=== PATIENT | female | born 1975 | race Caucasian/White ===

== ENCOUNTER 2018-06-12 10:48 | Emergency (ER) | payer OTHER ==
--- NOTE | 2018-06-12 11:23 | EDPHY ---
H & P Stated Complaint: Rib/shoulder pain Time Seen by Provider: 06/12/18 10:53 HPI/ROS: CHIEF COMPLAINT: Right-sided chest pain, pneumothorax HISTORY OF PRESENT ILLNESS: A 43-year-old female presents with right-sided chest pain. 2 days ago she was riding her horse (helmeted) when her horse bucked off. She landed directly onto her right shoulder. Onset moderate pain in the right shoulder and right chest. The pain increases with deep inspiration and with movement. She did not seek care directly after that incident as she felt okay and was able to ride her horse afterwards. However, after being in a hot tub, she became dizzy and had a syncopal episode. She sustained a nasal laceration, requiring suturing. She went to urgent care for the nasal laceration, told the provider about the fall and had a CXR. Chest x- ray was initially read as unremarkable. She was discharged home on meloxicam, which has controlled the pain. She received a follow-up phone call this morning , with a diagnosis of a right-sided pneumothorax and rib fractures of the 1st and 2nd right ribs. Told to f/u ED for further eval. No shortness of breath, neck/back pain, abdominal pain. REVIEW OF SYSTEMS: complete 10 point ROS negative except as noted in the HPI - Medical/Surgical History Hx Asthma: No Hx Chronic Respiratory Disease: No Hx Diabetes: No Hx Cardiac Disease: No Hx Renal Disease: No Hx Cirrhosis: No Hx Alcoholism: No Hx HIV/AIDS: No Hx Splenectomy or Spleen Trauma: No Other PMH: depression - Social History Smoking Status: Never smoked Alcohol Use: Sober Drug Use: None Additional Social History: with kids - Physical Exam Exam: General Appearance: Alert, pleasant Head: Atraumatic Eyes: No conjunctival erythema, PERRLA, EOMI ENT, Mouth: no oral trauma, no bony tenderness, bandage over nasal bridge Neck: Nontender, full range of motion without pain Respiratory: Normal inspection, right upper chest wall tenderness, lungs clear bilaterally Cardiovascular: Regular rate and rhythm Abdomen: Abdomen is soft and nontender Back: Normal inspection, no midline tenderness to palpation or percussion, points to midthoracic area as painful, but no tenderness Skin: No lacerations, no abrasions Extremities: Pelvis is stable and nontender; no extremity tenderness or deformity, full range of motion without pain Neurological: A&Ox3, normal motor function, normal sensory exam, cranial nerves intact Psychiatric: Mood and affect normal Constitutional: Initial Vital Signs Temperature (C) 36.7 C 06/12/18 10:53 Heart Rate 54 L 06/12/18 10:53 Respiratory Rate 18 06/12/18 10:53 Blood Pressure 120/73 06/12/18 10:53 O2 Sat (%) 97 06/12/18 10:53 O2 Delivery Mode Room Air Allergies/Adverse Reactions: No Known Allergies Allergy (Unverified 06/12/18 10:53) Home Medications: Medication Instructions Recorded Meloxicam 06/12/18 Sertraline HCl 06/12/18 Medical Decision Making - Diagnostics Imaging Results: Imaging Impressions Chest X-Ray 06/12/18 10:51 Impression: 1. Small right apical pneumothorax. 2. New age indeterminate mild compression deformity in the upper thoracic spine since 2012. Findings discussed with Emergency Department physician, Jada Woods on 2017, 11:12. Chest CT 06/12/18 11:07 Impression: 1. Nondisplaced right first rib fracture. No adjacent vascular injury or hematoma. 2. Tiny right apical pneumothorax and minimal pneumomediastinum. 3. Acute minimal T6 compression fracture. 4. Acute C7 spinous process fracture. 5. No aortic injury or mediastinal hematoma. Findings discussed with Emergency Department physician, Jada Woods on 2017, 12:42. Imaging: Discussed imaging studies w/ repair mechanic Radiologist, I viewed and interpreted images myself ED Course/Re-evaluation: This pt presents 2 days after a fall off horse with a rt PTX and 1st rib fx. Vital signs normal, including normal O2 saturation. Imaging report from outside facility reviewed. CXR today reveals small rt PTX. Given 1st rib fx, CT chest with IV contrast ordered to further evaluate. CT findings d/w pt, she remains remarkably comfortable-appearing with well-controlled pain. MIld thoracic compression fx, with normal neuro exam. Pain is well-controlled, spine brace not indicated. Consulted Dr. Kennedy, lilia f/u with pt in office. Pt will continue medications already prescribed. Warning signs discussed. Differential Diagnosis: includes though not limited to vascular injury, hemothorax, respiratory failure , intraperitoneal hemorrhage, neurologic compromise, ICH. - Data Points Laboratory Results: Laboratory Results 06/12/18 11:31 06/12/18 11:31 06/12/18 06/12/18 11:31 11:31 WBC 7.38 10^3/uL 10^3/uL (3.80-9.50) RBC 4.17 10^6/uL L 10^6/uL (4.18-5.33) Hgb 13.6 g/dL g/dL (12.6-16.3) Hct 40.9 % % (38.0-47.0) MCV 98.1 fL fL (81.5-99.8) MCH 32.6 pg pg (27.9-34.1) MCHC 33.3 g/dL g/dL (32.4-36.7) RDW 12.6 % % (11.5-15.2) Plt Count 188 10^3/uL 10^3/uL (150-400) MPV 11.3 fL fL (8.7-11.7) Neut % (Auto) 68.9 % % (39.3-74.2) Lymph % (Auto) 21.8 % % (15.0-45.0) Braxton % (Auto) 6.9 % % (4.5-13.0) Eos % (Auto) 1.5 % % (0.6-7.6) Baso % (Auto) 0.5 % % (0.3-1.7) Nucleat RBC Rel Count 0.0 % % (0.0-0.2) Absolute Neuts (auto) 5.08 10^3/uL 10^3/uL (1.70-6.50) Absolute Lymphs (auto) 1.61 10^3/uL 10^3/uL (1.00-3.00) Absolute Monos (auto) 0.51 10^3/uL 10^3/uL (0.30-0.80) Absolute Eos (auto) 0.11 10^3/uL 10^3/uL (0.03-0.40) Absolute Basos (auto) 0.04 10^3/uL 10^3/uL (0.02-0.10) Absolute Nucleated RBC 0.00 10^3/uL 10^3/uL (0-0.01) Immature Gran % 0.4 % % (0.0-1.1) Immature Gran # 0.03 10^3/uL 10^3/uL (0.00-0.10) Sodium 139 mEq/L mEq/L (135-145) Potassium 4.1 mEq/L mEq/L (3.3-5.0) Chloride 104 mEq/L mEq/L (97-110) Carbon Dioxide 26 mEq/l mEq/l (22-31) Anion Gap 9 mEq/L mEq/L (8-16) BUN 10 mg/dL mg/dL (7-23) Creatinine 0.6 mg/dL mg/dL (0.6-1.0) Estimated GFR > 60 Glucose 92 mg/dL mg/dL (70-100) Calcium 9.9 mg/dL mg/dL (8.5-10.4) Point of Care Test Results: Urine Collection Date 06/12/18 Collection Time 11:23 HCG Results Negative Departure - Departure Disposition: Home, Routine, Self-Care Clinical Impression: Pneumothorax on right Right rib fracture Qualifiers: Encounter type: initial encounter Rib fracture type: single rib Fracture type: closed Qualified Code(s): S22.31XA - Fracture of one rib, right side, initial encounter for closed fracture Thoracic compression fracture Qualifiers: Encounter type: initial encounter Fracture type: closed Qualified Code(s): S22.000A - Wedge compression fracture of unspecified thoracic vertebra, initial encounter for closed fracture Condition: Good Instructions: Traumatic Pneumothorax (ED), Rib Fracture (ED), Vertebral Compression Fracture (ED) Referrals: Hanane Milton MD [Primary Care Provider] - As per Instructions Laure Kennedy MD [Medical Doctor] - As per Instructions (Follow up with Dr. Kennedy in the office on Wednesday at 4pm. Go to radiology at 3pm on Wednesday to have a repeat chest Xray.)
[2018-06-12] MEDS ORDERED: IOPAMIDOL (ISOVUE-300) 100 ML BTL ONE (11:27)
[2018-06-12 11:41] LABS: PLATELET COUNT 188 10^3/uL (150-400)
[2018-06-12 13:25] VITALS: BP 120/78
== END 2018-06-12 13:30 | disposition home or self-care (01) ==
DX: S27.0XXA Traumatic pneumothorax, initial encounter (principal); S22.31XA Fracture of one rib, right side, initial encounter for closed fracture; S22.050A Wedge compression fracture of T5-T6 vertebra, initial encounter for closed fracture; V80.010A Animal-rider injured by fall from or being thrown from horse in noncollision accident, initial encounter; Y99.8 Other external cause status; Y93.52 Activity, horseback riding
CPT/HCPCS: Q9967

== ENCOUNTER → 2018-06-14 | Outpatient (CLI) | payer OTHER | LOC: FIMAGING 15:44 | PROVIDERS: ATTEND Surgery | DX: J93.9 Pneumothorax, unspecified (principal) ==

== ENCOUNTER → 2019-01-23 | Outpatient (CLI) | payer OTHER | LOC: BMCIMAGING 08:06 | PROVIDERS: ATTEND Internal Medicine | DX: Z12.31 Encounter for screening mammogram for malignant neoplasm of breast (principal); Z80.3 Family history of malignant neoplasm of breast ==